=== PATIENT | female | born 1985 | race Caucasian/White ===

== ENCOUNTER 2018-03-11 05:42 | Inpatient (IN) ==
[2018-03-11] MEDS ORDERED: Citric Acid/Sodium Citrate Liq 30 ML UDC PO SCH (06:15)
--- NOTE | 2018-03-11 06:23 | P.HPOB ---
History of Present Illness Service: obstetrics Primary Care Physician: UNKNOWN Chief Complaint: repeat CS History of Present Illness: 32 yo here for repeat CS at 39 weeks. Doing well, aware of risks and benefits Weeks Gestation:: 39 Para: 1 : 2 - Inpatient Certification I certify that the inpatient services were ordered in accordance with Medicare regulations governing the order. This includes certification that hospital inpatient services are reasonable and necessary and in the case of services not specified as inpatient-only under 42 CFR 419.22(n), that they are appropriately provided as inpatient services in accordance to with the 2-midnight benchmark under 43 CFR 412.3(e) Estimated Total Length of Stay (Days): 2 Plans for Post Hospital Care: Home Review of Systems All other systems reviewed negative except as stated in HPI PMFSH - Medical / Surgical Hx Neg / Unobtainable Medical Problems Denied: Yes - Medical History Medical History: Medical History (Last Reviewed 03/11/18 @ 06:19 by Cortez Hussein MD) Surgical history unknown - Tobacco History Second Hand Smoke Exposure: No Tobacco Use In Past 30 Days: No Medications and Allergies Allergies Allergy/AdvReac Type Severity Reaction Status Date / Time proactive solution for face Allergy Mild Rash Uncoded 03/11/18 06:10 Home Medications Medication Instructions Recorded Confirmed Type 95-iron ekm-nnhyt-say 1 tab PO DAILY 03/11/18 03/11/18 History [ + DHA] Exam Vital signs: Vital Signs 03/11/18 06:12 Temperature 98.6 F Pulse Rate 98 H Respiratory Rate 18 Blood Pressure 113/71 Intake & Output 03/10/18 03/10/18 03/11/18 06:59 18:59 06:59 Weight 74.389 kg - Constitutional no acute distress - Routine HEENT Exam Head: Present: normocephalic - Routine Neck Exam Present: supple, full ROM - Routine Respiratory Exam Present: CTA bilaterally - Routine Cardiovascular Exam Present: RRR - Routine Abdominal Exam Present: soft, normoactive bowel sounds - Routine Extremities Exam Present: full ROM, pulses intact - Routine Skin Exam Present: intact - Routine Neurological Exam Present: alert, oriented X3 - Additional findings Additional findings: gravid uterus with previous well healed cs incision Caprini VTE Risk Assessment Caprini VTE Risk Assessment: No/Low Risk (score <= 1) Caprini Risk Assessment Model: Point Value = 1 Point Value = 2 Point Value = 3 Point Value = 5 Age 41-60 Minor surgery BMI > 25 kg/m2 Swollen legs Varicose veins or History of unexplained or recurrent spontaneous Oral contraceptives or hormone replacement Sepsis (< 1 month) Serious lung disease, including pneumonia (< 1 month) Abnormal pulmonary function Acute myocardial infarction Congestive heart failure (< 1 month) History of inflammatory bowel disease Medical patient at bed rest Age 61-74 Arthroscopic surgery Major open surgery (> 45 min) Laparoscopic surgery (> 45 min) Malignancy Confined to bed (> 72 hours) Immobilizing plaster cast Central venous access Age >= 75 History of VTE Family history of VTE Factor V Leiden Prothrombin [id number] Lupus anticoagulant Anticardiolipin antibodies Elevated serum homocysteine Heparin-induced thrombocytopenia Other congenital or acquired thrombophilia Stroke (< 1 month) Elective arthroplasty Hip, pelvis, or leg fracture Acute spinal cord injury (< 1 month) Prophylaxis Regimen: Total Risk Factor Score Risk Level Prophylaxis Regimen 0-1 Low Early ambulation 2 Moderate Order ONE of the following: *Sequential Compression Device (SCD) *Heparin 5000 units SQ BID 3-4 Higher Order ONE of the following medications: *Heparin 5000 units SQ TID *Enoxaparin/Lovenox 40 mg SQ daily (WT < 150 kg, CrCl > 30 mL/min) *Enoxaparin/Lovenox 30 mg SQ daily (WT < 150 kg, CrCl > 10-29 mL/min) *Enoxaparin/Lovenox 30 mg SQ BID (WT < 150 kg, CrCl > 30 mL/min) AND/OR *Sequential Compression Device (SCD) 5 or more Highest Order ONE of the following medications: *Heparin 5000 units SQ TID (Preferred with Epidurals) *Enoxaparin/Lovenox 40 mg SQ daily (WT < 150 kg, CrCl > 30 mL/min) *Enoxaparin/Lovenox 30 mg SQ daily (WT < 150 kg, CrCl > 10-29 mL/min) *Enoxaparin/Lovenox 30 mg SQ BID (WT < 150 kg, CrCl > 30 mL/min) AND *Sequential Compression Device (SCD) Assessment and Plan - Diagnosis (1) S/P repeat low transverse Code(s): Z98.891 - History of uterine scar from previous surgery Status: Acute (2) 39 weeks gestation of Code(s): Z3A.39 - 39 weeks gestation of Status: Acute - Plan elective section
[2018-03-11] MEDS ORDERED: Morphine Sulfate PF Inj 5 MG/10 ML Ampul ONE (06:38)
[2018-03-11 06:50] LABS: Baso % (Auto) 0.3 % (0.0-2.0); Eos # (Auto) 0.1 th/mm3 (0.0-0.4); Hematocrit 36.9 % (35.0-46.0); Hemoglobin 12.7 gm/dL (11.6-15.3); Lymph # (Auto) 1.5 th/mm3 (1.0-4.8); Lymph % (Auto) 18.3 % (9.0-44.0); Mean Corpuscular HGB Conc 34.6 % (32.0-36.0); Mean Corpuscular Hemoglobin 31.2 pg (27.0-34.0); Mean Corpuscular Volume 90.2 fL (80.0-100.0); Mean Platelet Volume 10.5 fL (7.0-11.0); Mono # (Auto) 0.5 th/mm3 (0.0-0.9); Mono % (Auto) 6.2 % (0.0-8.0); Neut # (Auto) 6.2 th/mm3 (1.8-7.7); Neut % (Auto) 74.2 % (16.0-70.0); Platelet Count 127 th/mm3 (150-450); Red Blood Count 4.08 mil/mm3 (4.00-5.30); Red Cell Distribution Width 13.6 % (11.6-17.2); White Blood Count 8.3 th/mm3 (4.0-11.0)
[2018-03-11] MEDS ORDERED: ceFAZolin Inj 2,000 MG in Sodium Chlor 0.9% Inj 80 ML IV.SIG SCH (07:00)
[2018-03-11 07:07] LABS: Amphetamine Screen,Urine Neg (Neg); Barbiturate Screen,Urine Neg (Neg); Cannabinoid Screen,Urine Neg (Neg); Cocaine Screen,Urine Neg (Neg)
[2018-03-11 07:09] LABS: Bacteria,Urine Occasional /hpf; Bilirubin,Urine Negative (Negative); Calcium Oxalate Crystals,Urine Rare /hpf; Clarity,Urine Hazy (Clear); Color,Urine Yellow (Yellw/Straw); Glucose,Urine (UA) Negative (Negative); Leukocyte Esterase,Urine Negative (Negative); Mucus,Urine Few /lpf (Occasional); Nitrite,Urine Negative (Negative); Specific Gravity,Urine 1.019 (1.002-1.035); Squamous Epithelial Cell,Urine 1 /hpf (0-5)
[2018-03-11 07:14] LABS: Opiate Screen,Urine Neg (Neg)
[2018-03-11] MEDS ORDERED: Naloxone Inj 0.4 MG/ML Vial IV.PUSH PRN (07:35)
[2018-03-11] MEDS ORDERED: Oxytocin 30 Units/500ml Premix 30 UNITS/500 ML BAG IV.SIG ONE (08:19)
--- NOTE | 2018-03-11 08:24 | P.OBDELI ---
Procedure Note - Pre Op Diagnosis (1) S/P repeat low transverse (2) 39 weeks gestation of - Post Op Diagnosis (1) S/P repeat low transverse (2) 39 weeks gestation of Performed by: Cortez Hussein MD Procedure: Repeat Low Transverse Section Indication for Delivery: Desired elective repeat Informed Consent Obtained: For anesthesia, For procedure Confirmed Correct: Patient, Procedure, Time-out taken Anesthesia: Spinal Monitoring During Procedure: Blood pressure monitoring, conveyor monitor Urinary Catheter: Inserted using sterile technique, To dependent drainage Sterile Preparation: Duraprep Position: Supine with wedge to left side - Operative Features Skin Incision: Pfannenstiel Uterine Incision: Low transverse w/knife / blunt ext Membranes Ruptured: Artificially Presentation: Occiput anterior Status of Infant: Viable, Nursery present, Resuscitation required (O2 and peep) Medications: Antibiotics, Oxytocin Estimated blood loss (mL): 500 Procedure Tolerated: Well
--- NOTE | 2018-03-11 09:09 | MP ---
cc: Cortez Hussein MD DATE OF OPERATION: 03/11/2018 DATE OF PROCEDURE: 03/11/2018 PROCEDURE PERFORMED: Repeat low transverse section. PREOPERATIVE DIAGNOSES: Desires elective repeat at 39 weeks. POSTOPERATIVE DIAGNOSIS: Desires elective repeat at 39 weeks. SURGEON: Cortez Hussein MD ESTIMATED BLOOD LOSS: 500 mL. ANESTHESIA: General, Harsha ___ and Dr. Combs. ANESTHESIA: Spinal. COMPLICATIONS: None. FINDINGS: Live female , Apgars 8 and 8. went to the NICU secondary to transitioning with requiring O2 at 25%. PROCEDURE IN DETAIL: After informed consent, the patient was taken to the operating room where she was placed under spinal anesthesia and placed in a supine position with left lateral tilt. Abdomen, perineum, and vagina were prepped and draped in the normal sterile fashion. Timeout was taken. After adequate anesthesia was assured, a Pfannenstiel skin incision was carried sharply through the skin. The old scar was excised from the skin. We then traveled down to the fascia. The fascia was nicked in the midline. The incision extended laterally using sharp dissection secondary to scar tissue. Rectus muscle in the midline. Peritoneum was entered bluntly with a finger. The incision was extended laterally using sharp dissection secondary to scar tissue. No bladder flap had to be created, so a low transverse uterine incision was then made, carried sharply to the uterine cavity. Clear fluid was noted. The incision was extended laterally using blunt traction. A hand was placed into the uterus. The 's head was guided through the incision. Using fundal pressure, the infant's head readily delivered. Nose and mouth were suctioned well. Cord was clamped and cut and the infant was handed to Pediatrics in attendance after a 45 seconds cord clamping delay. At this point, the placenta was delivered manually, the uterus exteriorized, wiped free from all remaining products of conception. Uterine incision was then closed with running locking stitch of chromic suture. Good hemostasis was achieved. On the right side, there was a hematoma forming from a uterine artery laceration on the right. This was oversewn above and below the incision and the hematoma stopped expanding. The uterus was placed back in the abdomen and noted to be hemostatic and the hematoma on the right was stable. At the end of the procedure, all lap and instrument counts were reported as correct. The peritoneum was closed. The fascia was closed with Vicryl suture. The skin was closed with a subcuticular stitch. Pressure dressing was applied. Once again, the final count was correct. The patient tolerated the procedure well. She was taken to the recovery room in stable condition. MD AKIL Singh/ROQUE , 08:27 AM , 08:35 AM
[2018-03-11] MEDS ORDERED: Oxytocin 30 Units/500ml Premix 30 UNITS/500 ML BAG ONE (09:20)
[2018-03-11] MEDS ORDERED: Phenylephrine/NS 1000 MCG/10ML Syringe IV.PUSH ONE (12:00)
[2018-03-11] MEDS ORDERED: Oxytocin 30 Units/500ml Premix 30 UNITS/500 ML BAG IV.SIG PRN (13:19)
[2018-03-11] MEDS: Ibuprofen 600 MG Tablet PO PRN ×2 (14:25→21:47)
[2018-03-11] MEDS: Senna/Docusate Sodium 8.6/50 MG Tablet PO PRN (21:47)
[2018-03-12] MEDS: Ibuprofen 600 MG Tablet PO PRN ×3 (03:31→21:22)
[2018-03-12 08:06] LABS: Baso % (Auto) 0.4 % (0.0-2.0); Eos # (Auto) 0.1 th/mm3 (0.0-0.4); Eos % (Auto) 1.1 % (0.0-4.0); Hematocrit 29.2 % (35.0-46.0); Lymph # (Auto) 1.7 th/mm3 (1.0-4.8); Lymph % (Auto) 17.9 % (9.0-44.0); Mean Corpuscular HGB Conc 34.3 % (32.0-36.0); Mean Corpuscular Hemoglobin 31.5 pg (27.0-34.0); Mean Corpuscular Volume 91.7 fL (80.0-100.0); Mean Platelet Volume 9.9 fL (7.0-11.0); Mono # (Auto) 0.6 th/mm3 (0.0-0.9); Mono % (Auto) 5.8 % (0.0-8.0); Neut # (Auto) 7.1 th/mm3 (1.8-7.7); Neut % (Auto) 74.8 % (16.0-70.0); Platelet Count 113 th/mm3 (150-450); Red Blood Count 3.19 mil/mm3 (4.00-5.30); Red Cell Distribution Width 13.6 % (11.6-17.2); White Blood Count 9.6 th/mm3 (4.0-11.0)
--- NOTE | 2018-03-12 08:49 | P.PNOB ---
Subjective Post day: 1 Objective Vital Signs/I&O: Vital Signs 03/11/18 08:55 03/11/18 09:09 03/11/18 09:19 Temperature 97.7 F Pulse Rate 76 74 Respiratory Rate 16 16 Blood Pressure 111/65 109/64 03/11/18 09:24 03/11/18 10:40 03/11/18 14:48 Temperature 97.9 F Pulse Rate 75 87 88 Respiratory Rate 16 18 Blood Pressure 113/61 120/76 110/64 03/11/18 14:49 03/11/18 21:37 03/12/18 01:00 Temperature 98.4 F 98.0 F Pulse Rate 70 62 Respiratory Rate 18 18 18 Blood Pressure 106/66 113/71 03/12/18 06:00 03/12/18 08:00 Temperature 98.3 F 98.0 F Pulse Rate 70 88 Respiratory Rate 18 18 Blood Pressure 111/67 109/65 Result Diagrams: 03/12/18 08:01 Objective Remarks: GENERAL: Well-nourished, well-developed patient. ABDOMEN/GI: Abdomen soft, non-tender. Fundus: Firm, non-tender at umbilicus. GENITOURINARY: Light to moderate bleeding. EXTREMITIES: No cyanosis or edema, non-tender, without signs of DVT. Medications and IVs: Active Medications Citric Acid/Sodium Citrate (Sodium Citrate/Citric Acid Liq) 30 ml PO [employer] [facility] Stop: 03/15/18 06:14 Last Admin: 03/11/18 07:06 Dose: 30 ml Diphtheria/Pertussis/Tetanus Vacc (Boostrix Vaccine Inj) 0.5 ml IM .ONCE ONE Stop: 03/12/18 16:01 Cefazolin Sodium 2,000 mg/ (Sodium Chloride) 100 mls @ 200 mls/hr IV.SIG [employer] [facility] Stop: 03/15/18 06:59 Last Admin: 03/11/18 07:07 Dose: 200 mls/hr Lactated Ringer's (Lr 1000 Ml Inj) 1,000 mls @ 150 mls/hr IV.CONT .Q6H40M [facility] Lactated Ringer's (Lr 1000 Ml Inj) 1,000 mls @ 100 mls/hr IV.CONT .Q10H [facility] Stop: 03/12/18 09:18 Oxytocin (Pitocin 30 Units/Ns 500 Ml Premix) 30 units in 500 mls @ 100 mls/hr IV.SIG PRN PRN PRN Reason: Heavy bleeding Stop: 03/12/18 13:18 Ibuprofen (Motrin) 600 mg PO Q6HR PRN PRN Reason: cramping Last Admin: 03/12/18 03:31 Dose: 600 mg Measles/Mumps/Rubella Vaccine Live (M-M-R Ii Vaccine Inj) 0.5 ml SQ .ONCE ONE Stop: 03/12/18 16:01 Ondansetron HCl (Zofran Inj) 4 mg IV.PUSH Q6H PRN PRN Reason: NAUSEA OR VOMITING Oxycodone/Acetaminophen (Percocet 5/325 Mg) 1 tab PO Q4H PRN PRN Reason: PAIN SCALE 3 TO 5 Last Admin: 03/11/18 21:47 Dose: 1 tab Oxycodone/Acetaminophen (Percocet 5/325 Mg) 2 tab PO Q4H PRN PRN Reason: PAIN SCALE 6 TO 10 Last Admin: 03/12/18 08:02 Dose: 2 tab Senna/Docusate Sodium (Lori-Colace) 2 tab PO Q12HR PRN PRN Reason: CONSTIPATION Last Admin: 03/11/18 21:47 Dose: 2 tab Simethicone (Mylicon Chew) 80 mg PO QID PRN PRN Reason: FLATULENCE Sodium Chloride (Ns Flush) 2 ml IV.FLUSH BID DARRIN Sodium Chloride (Ns Flush) 2 ml IV.FLUSH PRN PRN PRN Reason: FLUSH AFTER USING IV ACCESS Assessment and Plan - Diagnosis (1) S/P repeat low transverse Code(s): Z98.891 - History of uterine scar from previous surgery Status: Acute (2) 39 weeks gestation of Code(s): Z3A.39 - 39 weeks gestation of Status: Acute - Plan elective section
[2018-03-12] MEDS: Senna/Docusate Sodium 8.6/50 MG Tablet PO PRN ×2 (12:31→21:19)
[2018-03-12] MEDS ORDERED: Measles/Mumps/Rubella Vaccine Inj 0.5 ML Vial SQ ONE (16:00)
[2018-03-12] MEDS ORDERED: Diphtheria/Tetanus/Pertussis Vaccine Inj 0.5 ML Syringe IM ONE (16:00)
[2018-03-13] MEDS: Simethicone 80 MG Chew Tablet PO PRN ×3 (00:41→12:01)
[2018-03-13] MEDS: Ibuprofen 600 MG Tablet PO PRN ×2 (04:35→12:01)
[2018-03-13] MEDS: Senna/Docusate Sodium 8.6/50 MG Tablet PO PRN (09:33)
--- NOTE | 2018-03-13 12:06 | P.PNOB ---
Objective Vital Signs/I&O: Vital Signs 03/12/18 20:00 03/13/18 08:00 Temperature 98.2 F 98.1 F Pulse Rate 104 H 91 H Respiratory Rate 18 18 Blood Pressure 107/64 108/69 Result Diagrams: 03/12/18 08:01 Objective Remarks: GENERAL: Well-nourished, well-developed patient. . ABDOMEN/GI: Abdomen soft, non-tender. Fundus: Firm, non-tender at umbilicus. GENITOURINARY: Light to moderate bleeding. EXTREMITIES: No cyanosis or edema, non-tender, without signs of DVT. Medications and IVs: Active Medications Citric Acid/Sodium Citrate (Sodium Citrate/Citric Acid Liq) 30 ml PO [employer] [facility] Stop: 03/15/18 06:14 Last Admin: 03/11/18 07:06 Dose: 30 ml Cefazolin Sodium 2,000 mg/ (Sodium Chloride) 100 mls @ 200 mls/hr IV.SIG [employer] [facility] [facility] Stop: 03/15/18 06:59 Last Admin: 03/11/18 07:07 Dose: 200 mls/hr Lactated Ringer's (Lr 1000 Ml Inj) 1,000 mls @ 150 mls/hr IV.CONT .Q6H40M [facility] Ibuprofen (Motrin) 600 mg PO Q6HR PRN PRN Reason: cramping Last Admin: 03/13/18 12:01 Dose: 600 mg Ondansetron HCl (Zofran Inj) 4 mg IV.PUSH Q6H PRN PRN Reason: NAUSEA OR VOMITING Oxycodone/Acetaminophen (Percocet 5/325 Mg) 1 tab PO Q4H PRN PRN Reason: PAIN SCALE 3 TO 5 Last Admin: 03/12/18 12:30 Dose: 1 tab Oxycodone/Acetaminophen (Percocet 5/325 Mg) 2 tab PO Q4H PRN PRN Reason: PAIN SCALE 6 TO 10 Last Admin: 03/13/18 09:36 Dose: 2 tab Senna/Docusate Sodium (Lori-Colace) 2 tab PO Q12HR PRN PRN Reason: CONSTIPATION Last Admin: 03/13/18 09:33 Dose: 2 tab Simethicone (Mylicon Chew) 80 mg PO QID PRN PRN Reason: FLATULENCE Last Admin: 03/13/18 12:01 Dose: 80 mg Sodium Chloride (Ns Flush) 2 ml IV.FLUSH BID DARRIN Sodium Chloride (Ns Flush) 2 ml IV.FLUSH PRN PRN PRN Reason: FLUSH AFTER USING IV ACCESS Assessment and Plan - Diagnosis (1) S/P repeat low transverse Code(s): Z98.891 - History of uterine scar from previous surgery Status: Acute (2) 39 weeks gestation of Code(s): Z3A.39 - 39 weeks gestation of Status: Acute - Plan elective section
--- NOTE | 2018-03-13 12:12 | P.DS ---
Date of admission: 03/11/18 05:42 Primary care physician: UNKNOWN Brief History from admission: 32 yo here for repeat CS at 39 weeks. Doing well, aware of risks and benefits DS: Diagnosis - Discharge Diagnosis (1) S/P repeat low transverse Status: Acute (2) 39 weeks gestation of Status: Acute DS: Medications - Discharge Medications Prescriptions: oxycodone-acetaminophen 1 - 2 tab PO Q4H PRN 3 Days #24 tab PRN Reason: Pain Scale 6 To 10 DS: Summary Hospital Course: admit with repeat cs dc ppd#2 - Time Spent with Patient Total time spent providing and/or coordinating discharge services: Exam Vital signs: Vital Signs 03/12/18 20:00 03/13/18 08:00 Temperature 98.2 F 98.1 F Pulse Rate 104 H 91 H Respiratory Rate 18 18 Blood Pressure 107/64 108/69 - Constitutional no acute distress - Routine Respiratory Exam Present: CTA bilaterally - Routine Cardiovascular Exam Present: RRR - Routine Abdominal Exam Present: soft, surgical scars Results Procedures completed during hospitalization: section Discharge Plan - Discharge Disposition Patient Disposition: 01 Discharge Home - Discharge Condition Condition: Stable - Discharge Order Discharge Orders: Discharge Order (Routine); Ordered 03/13/18 Ordered By: Cortez Hussein - Physicians Team Primary Care Provider: UNKNOWN, Attending Provider: Cortez Hussein - Rxs /Orders / Referrals /Forms Prescriptions: New oxycodone-acetaminophen 5-325 mg Tablet 1 - 2 tab PO Q4H PRN (Reason: Pain Scale 6 To 10) 3 Days Qty: 24 RF: 0 Continue 95-iron pze-ynwor-hre [ + DHA] 28 mg iron-800 mcg-200 mg Combo Pack 1 tab PO DAILY Referrals: Cortez Hussein MD [Physician] - See Instructions (2 weeks) UNKNOWN, [Primary Care Provider] - See Instructions - Discharge Instructions Patient Printed Instructions: (DC) - Post Discharge Care Plan Care Plan Goals: Congratulations on your new baby! We want your recovery to be rizzo and trouble free. Please Report the Following Symptoms to Your Doctor: -Temperature above 100.5 degrees -Redness of incision or excessive or foul smelling drainage -Unusual pain or calf pain -Increased vaginal bleeding -Painful or difficulty urinating -Feelings of extreme sadness or anxiety Goals to Promote Your Health * To prevent worsening of your condition and complications * To maintain your health at the optimal level Directions to Meet Your Goals Take your medications as prescribed Follow your dietary instruction Follow activity as directed Ensure plenty of rest for recovery Drink fluids for hydration Keep your appointments as scheduled Take your immunizations and boosters as scheduled If your symptoms worsen call your OB Physician, or go to an Urgent Care Center or Emergency Room Smoking is Dangerous to your health. Avoid second hand smoke Call the 24-hour crisis hotline for domestic abuse at
== END 2018-03-13 14:42 | disposition home or self-care (01) ==
LOC: H2E 05:42 → H1EA 10:08
PROVIDERS: ADMIT Obstetrics & Gynecology; ATTEND Obstetrics & Gynecology